=== PATIENT | female | born 1990 ===

== ENCOUNTER 2021-04-07 17:51 | Outpatient (CLI) | payer OTHER ==
[~2021-04-07 17:51] MED LIST: PRENATAL CAPLE1 EACH
== END 2021-04-07 18:25 | disposition home or self-care (01) ==
LOC: NST 17:51
PROVIDERS: ATTEND Obstetrics & Gynecology
DX: Z34.83 Encounter for supervision of other normal pregnancy, third trimester (principal)

== ENCOUNTER 2021-05-16 09:06 | Outpatient (CLI) | payer OTHER | END 2021-05-16 13:00 | disposition home or self-care (01) | LOC: NST 09:06 | PROVIDERS: ATTEND Obstetrics & Gynecology | DX: Z34.83 Encounter for supervision of other normal pregnancy, third trimester (principal) ==

== ENCOUNTER 2021-05-16 15:00 | Inpatient (IN) | payer OTHER ==
[~2021-05-16] VITALS: Ht 157.5 cm; Wt 61.7 kg
== END 2021-06-03 11:41 | disposition home or self-care (01) | DRG 807 ==
LOC: LDR 06-01 04:13 → SURG-SUITE 06-01 04:13 → OB/GYN 06-05 15:00
PROVIDERS: ADMIT Obstetrics & Gynecology Maternal & Fetal Medicine; ATTEND Obstetrics & Gynecology Maternal & Fetal Medicine
PROC: 10E0XZZ Delivery of Products of Conception, External Approach (ICD-10-PCS; principal; 2021-06-01)
PROC: 0KQM0ZZ Repair Perineum Muscle, Open Approach (ICD-10-PCS; 2021-06-01)
PROC: 4A1HXFZ Monitoring of Products of Conception, Cardiac Rhythm, External Approach (ICD-10-PCS; 2021-06-01)
DX: O70.1 Second degree perineal laceration during delivery (principal); Z37.0 Single live birth; Z3A.39 39 weeks gestation of pregnancy

== ENCOUNTER 2021-05-31 11:16 | Outpatient (CLI) | payer OTHER | END 2021-05-31 11:56 | disposition home or self-care (01) | LOC: NST 11:16 | PROVIDERS: ATTEND Obstetrics & Gynecology Maternal & Fetal Medicine | DX: Z34.83 Encounter for supervision of other normal pregnancy, third trimester (principal) ==